=== PATIENT | male | born 1960 | race Two or more races ===

== ENCOUNTER → 2025-05-15 | Emergency (ER) | payer OTHER ==
[~2025-05-15] VITALS: Ht 172.7 cm; Wt 76.2 kg
[~2025-05-15] MED LIST: CETIRIZINE HCL 5 MG/5 ML ML PO STA; DEXAMETHASONE SODIUM PHOSPHATE 4 MG/ML VIAL IM STA; GUAIFENESIN 200 MG/10 ML BLIST.PACK PO STA; SIMVASTATIN
== END | disposition home or self-care (01) ==
LOC: ER 16:46
DX: J98.8 Other specified respiratory disorders (principal); B34.8 Other viral infections of unspecified site